=== PATIENT | male | born 1950 | race Caucasian/White ===

== ENCOUNTER 2020-08-04 13:16 | Emergency (ER) | payer MEDICARE, OTHER ==
[~2020-08-04] VITALS: Ht 167.6 cm; Wt 90.7 kg
[~2020-08-04 13:16] MED LIST: AMLO5TAB4 PO; AMYL1CAP58 PO; ASPI-605 PO; ATEN25TA PO; CHOL10002 PO; ESOM40CA PO; LEVO500T23 PO; LOSA50TA39 PO; MEMA5TAB PO; ROSU10TA2 PO
--- NOTE | 2020-08-04 13:16 | NUR ---
PT BIB SON C/O VOMITING BLOOD PER PT SON "HE ACCIDENTALLY TOOK BORIC ACID AT 5AM" PT IS AAOX4, NOT IN RESPIRATORY DISTRESS, HOOKED TO OCCUPATIONAL MEDICINE OFFICER, KEPT RESTED AND COMFORTABLE. WILL CONTINUE TO MONITOR.
[2020-08-04] MEDS ORDERED: PANTOPRAZOLE 40 MG VIAL ONE (13:27)
--- NOTE | 2020-08-04 13:27 | NUR ---
SEEN AND EXAMINED BY .
[2020-08-04] MEDS ORDERED: PANTOPRAZOLE 40 MG VIAL IV ONE (13:30)
--- NOTE | 2020-08-04 13:30 | NUR ---
IV LINE ESTABLISHED BLOOD DRAWN AND SENT TO LAB.
[2020-08-04 13:58] LABS: BASOPHILS % (AUTO) 0.3 % (0.0-2.0); EOSINOPHILS % (AUTO) 0.5 % (0.0-6.0); HEMATOCRIT 46 % (39-51); HEMOGLOBIN 15.2 g/dL (13.5-17.5); LYMPHOCYTES # (AUTO) 0.9 /CMM (0.8-4.8); LYMPHOCYTES % (AUTO) 20.2 % (20.0-44.0); MEAN CORPUSCULAR HGB CONC 33 g/dl (31.0-36.0); MEAN CORPUSCULAR VOLUME 102 fL (80-96); MONOCYTES # (AUTO) 0.3 /CMM (0.1-1.30); MONOCYTES % (AUTO) 7.1 % (2.0-12.0); NEUTROPHILS # (AUTO) 3.2 /CMM (1.8-8.9); NEUTROPHILS % (AUTO) 71.9 % (43.0-81.0); PLATELET COUNT (AUTO) 145 /CMM (150-450); RED BLOOD CELL COUNT(AUTO) 4.49 MIL/uL (4.5-6.0); WHITE BLOOD COUNT (AUTO) 4.5 K/uL (4.3-11.0)
[2020-08-04] MEDS ORDERED: ROSU40TA23 PO (14:13)
[2020-08-04] MEDS ORDERED: RAMI10CA69 PO (14:13)
[2020-08-04] MEDS ORDERED: TAMS-12 PO (14:13)
[2020-08-04] MEDS ORDERED: ACYC400T PO (14:13)
[2020-08-04] MEDS ORDERED: FOLI0.8T PO (14:13)
[2020-08-04] MEDS ORDERED: OMEP1CAP25 PO (14:13)
[2020-08-04] MEDS ORDERED: MONT10TA22 PO (14:13)
[2020-08-04] MEDS ORDERED: TICA90TA PO (14:13)
[2020-08-04] MEDS ORDERED: EZET10TA32 PO (14:13)
[2020-08-04 14:23] LABS: CALCIUM, SERUM 8.9 mg/dL (8.5-10.1); CARBON DIOXIDE 25 mmol/L (21-32); CHLORIDE 106 mmol/L (98-107); CREATININE 1.1 mg/dL (0.6-1.3); GLUCOSE 116 mg/dL (74-106); POTASSIUM 3.8 mmol/L (3.5-5.1); SODIUM SERUM 143 mmol/L (136-145); UREA NITROGEN, BLOOD 24 mg/dL (7-18)
[2020-08-04 14:29] LABS: ALANINE AMINOTRANSFERASE 44 U/L (12-78); ALKALINE PHOSPHATASE 41 U/L (46-116); ASPARTATE AMINOTRANSFERASE 28 U/L (15-37); BILIRUBIN,DIRECT 0.3 mg/dL (0.0-0.2); BILIRUBIN,TOTAL 1.2 mg/dL (0.2-1.0); LIPASE 321 U/L (73-393); TOTAL PROTEIN, SERUM 7.3 g/dL (6.4-8.2)
--- NOTE | 2020-08-04 14:35 | NUR ---
Patient discharged to home in stable condition. Written and verbal after care instructions given. Patient verbalizes understanding of instruction.IV removed. Catheter intact and site benign. Pressure and 4x4 applied to site. No bleeding noted.
[2020-08-04 14:36] VITALS: BP 129/77
== END 2020-08-04 14:37 | disposition home or self-care (01) ==
LOC: ER 13:23
DX: T49.0X1A Poisoning by local antifungal, anti-infective and anti-inflammatory drugs, accidental (unintentional), initial encounter (principal); R11.2 Nausea with vomiting, unspecified; R94.31 Abnormal electrocardiogram [ECG] [EKG]; I10 Essential (primary) hypertension; J44.9 Chronic obstructive pulmonary disease, unspecified; Z98.890 Other specified postprocedural states; Z79.899 Other long term (current) drug therapy; Z79.82 Long term (current) use of aspirin; Y92.89 Other specified places as the place of occurrence of the external cause
CPT/HCPCS: 36415; 71045; 80048; 80076; 83690; 84484; 85025; 85730; 86850; 93005; 96374; 99285; C9113